=== PATIENT | female | born 1990 | race Hispanic/Latino ===

== ENCOUNTER 2019-07-27 09:53 | Emergency (ER) | payer OTHER ==
[2019-07-27] MEDS ORDERED: Acetaminophen 500 MG TAB ONE (10:12)
[2019-07-27 17:13] LABS: SARS-CoV-2 MS2 Positive; SARS-CoV-2 N Gene Negative; SARS-CoV-2 S Gene Negative; SARS-CoV-2 orf1ab Negative
== END 2019-07-27 11:20 | disposition home or self-care (01) ==
LOC: ERS 09:53
DX: J02.0 Streptococcal pharyngitis (principal)
CPT/HCPCS: 87430; 87635; 87804; 99283; U0003

== ENCOUNTER 2019-09-19 16:11 | Emergency (ER) | payer OTHER ==
[2019-09-20 14:06] LABS: SARS-CoV-2 MS2 Positive; SARS-CoV-2 N Gene Positive; SARS-CoV-2 S Gene Positive; SARS-CoV-2 orf1ab Positive
== END 2019-09-19 16:55 | disposition home or self-care (01) ==
LOC: ERS 16:11
DX: U07.1 COVID-19 (principal)
CPT/HCPCS: 87635; 99283; U0003